=== PATIENT | male | born 1975 ===

== ENCOUNTER 2017-02-13 22:00 | Emergency (ER) | payer OTHER ==
[2017-02-13 22:53] VITALS: RESP 16; TEMP 98.6; O2SAT 100
--- NOTE | 2017-02-13 23:06 | ED PDOC ---
Arrival/HPI - General Chief Complaint: Trauma Time Seen by Provider: 02/13/17 22:54 Historian: Patient - History of Present Illness Narrative History of Present Illness (Text): 02/13/17 23:03 41yo male with no PMHx present with complaint of left sided neck pain s/p trauma this evening. states a box weighing about 60lbs fell and landed on his left neck, while carrying the box at work at 1900. Notes LOC, followed by tremors. States he feels that something "ruptured" inside his neck. He denies focal weakness, dysphagia, odynophagia, any other complaint. Past Medical History - Provider Review Nursing Documentation Reviewed: Yes - Psychiatric Hx Substance Use: No - Anesthesia Hx Anesthesia: No Hx Anesthesia Reactions: No Hx Malignant Hyperthermia: No Family/Social History - Physician Review Nursing Documentation Reviewed: Yes Family/Social History: Unknown Family HX Smoking Status: Never Smoked Hx Alcohol Use: No Hx Substance Use: No Allergies/Home Meds Allergies/Adverse Reactions: Allergies No Known Allergies Allergy (Verified 02/13/17 22:53) Review of Systems - Physician Review All systems were reviewed & negative as marked: Yes - Review of Systems Constitutional: Normal Eyes: Normal ENT: Normal Respiratory: Normal Cardiovascular: Normal Gastrointestinal: Normal Genitourinary Male: Normal Musculoskeletal: Neck Pain Skin: Normal Neurological: Normal Endocrine: Normal Hemo/Lymphatic: Normal Psychiatric: Normal Physical Exam Vital Signs Reviewed: Yes Vital Signs Temp Pulse Resp BP Pulse Ox 02/14/17 00:34 62 16 136/90 100 02/13/17 22:01 98.6 F 59 L 16 141/93 H 100 Temperature: Afebrile Blood Pressure: Normal Pulse: Regular Respiratory Rate: Normal Appearance: Positive for: Well-Appearing, Non-Toxic, Comfortable Pain Distress: None Mental Status: Positive for: Alert and Oriented X 3 - Systems Exam Head: Present: Atraumatic, Normocephalic Pupils: Present: PERRL Extroacular Muscles: Present: EOMI Conjunctiva: Present: Normal Mouth: Present: Moist Mucous Membranes Pharnyx: Present: Normal. No: ERYTHEMA, EXUDATE, TONSILS ENLARGED Neck: Present: Normal Range of Motion. No: MIDLINE TENDERNESS, Paraspinal Tenderness Respiratory/Chest: Present: Clear to Auscultation, Good Air Exchange. No: Respiratory Distress, Accessory Muscle Use Cardiovascular: Present: Regular Rate and Rhythm, Normal S1, S2. No: Murmurs Abdomen: Present: Normal Bowel Sounds. No: Tenderness, Distention, Peritoneal Signs Back: Present: Normal Inspection Upper Extremity: Present: Normal Inspection. No: Cyanosis, Edema Lower Extremity: Present: Normal Inspection. No: Edema Neurological: Present: GCS=15, CN II-XII Intact, Speech Normal Skin: Present: Warm, Dry, Normal Color. No: Rashes Psychiatric: Present: Alert, Oriented x 3, Normal Insight, Normal Concentration Medical Decision Making ED Course and Treatment: 02/14/17 00:36 Pt in ED for left sided neck pain s/p trauma. He had FROM in ED. He had no focal neurological deficit. No drooling and no dysphagia was noted. Head CT - Negative Soft tissue Neck CT -IMPRESSION: 1. No acute findings. 2. Non-acute findings are described above. ]Result was DW the patient. He was DC home to f/u with his PMD. TRT ED for any new or worsening symptoms. - RAD Interpretation Radiology Orders: 02/13/17 23:02 HEAD W/O CONTRAST [CT] Stat NECK SOFT TISSUE W/O CONTRAST [CT] Stat Disposition/Present on Arrival - Present on Arrival Any Indicators Present on Arrival: No History of DVT/PE: No History of Uncontrolled Diabetes: No Urinary Catheter: No History of Decub. Ulcer: No History Surgical Site Infection Following: None - Disposition Have Diagnosis and Disposition been Completed?: Yes Diagnosis: Contusion of neck, Head injury Disposition: HOME/ ROUTINE Disposition Time: 00:20 Patient Plan: Discharge Condition: STABLE Discharge Instructions (ExitCare): Head Injury (ED) Additional Instructions: Follow up with your Doctor Return to ED for any new or worsening symptoms Referrals: PCP,NO [Primary Care Provider] - Follow up with primary Forms: WORK NOTE
--- NOTE | 2017-02-13 23:36 | CT ---
EXAM: CT Head Without Intravenous Contrast CLINICAL HISTORY: 41 years old, male; Injury or trauma; Fall; Initial encounter; Swelling (edema); Additional info: Had injury TECHNIQUE: Axial computed tomography images of the head/brain without intravenous contrast. This CT exam was performed using one or more of the following dose reduction techniques: automated exposure control, adjustment of the mA and/or kV according to patient size, and/or use of iterative reconstruction technique. COMPARISON: No relevant prior studies available. FINDINGS: Brain: No intracranial hemorrhage. No mass. No edema. Ventricles: No hydrocephalus. Bones/joints: No acute fracture. Soft tissues: Unremarkable. Sinuses: No acute sinusitis. Mastoid air cells: No mastoid effusion. Orbits: Unremarkable as visualized. IMPRESSION: 1. No intracranial hemorrhage. 2. Incidental/non-acute findings are described above.
--- NOTE | 2017-02-13 23:57 | CT ---
EXAM: CT Neck Without Intravenous Contrast CLINICAL HISTORY: 41 years old, male; Injury or trauma; Fall; Initial encounter; Swelling (edema); Additional info: Left sided trauma TECHNIQUE: Axial computed tomography images of the neck without intravenous contrast. This CT exam was performed using one or more of the following dose reduction techniques: automated exposure control, adjustment of the mA and/or kV according to patient size, and/or use of iterative reconstruction technique. Coronal and sagittal reformatted images were created and reviewed. COMPARISON: No relevant prior studies available. FINDINGS: Limitations: Lack of intravenous contrast. Nasopharynx: Unremarkable. Oropharynx: No significant tonsillar enlargement. Hypopharynx: Unremarkable. Larynx: Unremarkable. Normal epiglottis. Trachea: Unremarkable. Retropharyngeal space: Unremarkable. Submandibular/parotid glands: Glands are normal in size. Thyroid: Unremarkable. No enlarged or calcified nodules. Bones/joints: Straightening of cervical spine. No acute fracture. Minimal calcification of ligamentum flavum. Soft tissues: Unremarkable. Vasculature: No acute findings. Lymph nodes: No pathologically enlarged lymph nodes. Sinuses: Minimal mucosal thickening of maxillary sinuses. No air-fluid levels. Lung apices: Unremarkable as visualized. IMPRESSION: 1.No acute findings. 2.Non-acute findings are described above.
[2017-02-14 00:35] VITALS: BP 136/90; PULSE 62
== END 2017-02-14 00:36 | disposition home or self-care (01) ==
LOC: ED 22:00
DX: S10.93XA Contusion of unspecified part of neck, initial encounter (principal); S09.90XA Unspecified injury of head, initial encounter; W20.8XXA Other cause of strike by thrown, projected or falling object, initial encounter; Y92.9 Unspecified place or not applicable; Y99.0 Civilian activity done for income or pay